=== PATIENT | male | born 1955 | race Caucasian/White ===

== ENCOUNTER 2024-06-22 04:08 | Day surgery (SDC) | payer OTHER, MEDICARE ==
[2024-06-18 12:49] VITALS: BMI 24.7
[2024-06-22 09:04] VITALS: RESP 18
[2024-06-22] MEDS ORDERED: MIDAZOLAM HCL 2 MG/2 ML SINGLE DOSE VIAL ONE ×2 (10:53→11:11)
[2024-06-22] MEDS ORDERED: ONDANSETRON 4 MG/2 ML VIAL ONE (11:09)
[2024-06-22] MEDS ORDERED: KETOROLAC TROMETHAMINE 30 MG/1 ML VIAL ONE (11:09)
[2024-06-22] MEDS ORDERED: ELECTROLYTE-148 SOLN 1,000 ML IV SCH (11:45)
[2024-06-22 12:48] VITALS: BP 104/64; PULSE 54; TEMP 97.7
== END 2024-06-22 12:45 | disposition home or self-care (01) ==
LOC: JASU-SURG 04:08
PROVIDERS: ATTEND Urology
PROC: 0TF48ZZ Fragmentation in Left Kidney Pelvis, Via Natural or Artificial Opening Endoscopic (ICD-10-PCS; principal; 2024-06-22 10:45)
DX: N20.0 Calculus of kidney (principal)